=== PATIENT | female | born 1995 | race Caucasian/White ===

== ENCOUNTER → 2016-06-12 | Outpatient (CLI) | payer OTHER ==
[~2016-06-12] MED LIST: ATOXIMETIN-B1 CAP; LISINOPRIL10 MG PO; ZANTAC 150150 MG PO; Zithromax200 MG/5 M PO
== END | disposition home or self-care (01) ==
LOC: LAB 08:43
DX: R73.9 Hyperglycemia, unspecified (principal)

== ENCOUNTER → 2017-05-29 | Day surgery (SDC) | payer OTHER ==
[~2017-05-29] VITALS: Ht 177.8 cm; Wt 137.0 kg
[~2017-05-29] MED LIST changes: +HYDR25T PO; +NORCO 5-325 TA1 EACH PO
--- NOTE | ~2017-05-29 | PROC NOTE ---
[place], [place] PROCEDURE NOTE NAME: SHIRIN YOUNG UNIT #: [id number] ROOM: DOCTOR: CASH GEORGE MD BIRTHDATE: [birth year] DOS: 05/29/2017 PREOPERATIVE DIAGNOSIS: Bilateral axillary skin tags. POSTOPERATIVE DIAGNOSIS: Bilateral axillary skin tags. PROCEDURE: Excision of left axillary skin tags. SURGEON: Cash George MD [employer] MANAGER: TRAVON. ANESTHESIA: MAC with local (1% plain lidocaine). INDICATIONS: This is a 21-year-old lady with a history of bilateral extensive axillary skin tags, who is here for the above-mentioned procedure. The procedure and its complications were explained to the patient in detail preoperatively. Complications that were discussed included but were not limited to, bleeding, recurrence, prolonged pain and damage to underlying vital structures. She agreed to proceed. DESCRIPTION OF PROCEDURE: After identifying the patient, the patient was brought to the operating suite and laid in the supine position. It was decided to proceed with the left side first in order to spare her right arm since it is the dominant arm for her. The parts were then painted and draped in the usual sterile fashion. A time-out procedure was called. With the help of needle point cautery, multiple skin tags were excised and sent for histopathological diagnosis. Hemostasis was achieved and thereafter local anesthesia (1% plain lidocaine) was injected for the purposes of analgesia. A dressing was placed and the patient was brought back to the recovery room in stable fashion. There were no complications. Dr. Cash George, the attending surgeon, was present throughout the operating case. Cash George MD CM:PROCNOTE:PROCEDURE NOTE [id number] CASH GEORGE MD
[2017-05-29 07:11] VITALS: BP 112/57
[2017-05-29 08:01] VITALS: BP 96/54
[2017-05-29 08:16] VITALS: BP 106/52
[2017-05-29 08:31] VITALS: BP 116/60
[2017-05-29 08:44] VITALS: BP 112/52
[2017-05-29 08:55] VITALS: BP 116/56
== END | disposition home or self-care (01) ==
LOC: SDC 05-28 08:00
DX: L82.1 Other seborrheic keratosis (principal); L91.8 Other hypertrophic disorders of the skin; I10 Essential (primary) hypertension; Z88.8 Allergy status to other drugs, medicaments and biological substances; K21.9 Gastro-esophageal reflux disease without esophagitis; Z79.899 Other long term (current) drug therapy; E66.01 Morbid (severe) obesity due to excess calories; Z68.41 Body mass index [BMI] 40.0-44.9, adult

== ENCOUNTER 2017-10-30 16:46 | Emergency (ER) | payer OTHER ==
[~2017-10-30] VITALS: Ht 182.8 cm; Wt 168.3 kg
[2017-10-30] MEDS ORDERED: AUGMENTIN 875875 MG PO (17:09)
== END 2017-10-30 17:50 | disposition home or self-care (01) ==
LOC: ED 16:46
DX: S51.052A Open bite, left elbow, initial encounter (principal); S41.152A Open bite of left upper arm, initial encounter; Z79.899 Other long term (current) drug therapy; Z88.8 Allergy status to other drugs, medicaments and biological substances; W54.0XXA Bitten by dog, initial encounter; Y93.89 Activity, other specified; Y92.89 Other specified places as the place of occurrence of the external cause; Y99.9 Unspecified external cause status

== ENCOUNTER 2019-05-14 12:49 | Emergency (ER) | payer OTHER ==
[~2019-05-14] VITALS: Ht 172.7 cm; Wt 173.3 kg
[~2019-05-14 12:49] MED LIST changes: +AUGMENTIN 875875 MG PO
[2019-05-14 14:48] LABS: BASO # 0.1 10*3/uL (0.0-0.1); BASO % 0.5 % (0.0-1.0); EOS % 6.2 % (1.0-4.0); HEMATOCRIT 43.8 % (37.0-47.0); HEMOGLOBIN 14.5 g/dl (12.0-16.0); LYMPH # 3.4 10*3/uL (1.3-4.4); LYMPH % 21.8 % (27.0-41.0); MEAN CELL VOLUME 92.8 fl (81.0-99.0); MEAN CORPUSCULAR HGB 30.7 pg (27.0-31.0); MEAN CORPUSCULAR HGB CONC 33.1 g/dl (33.0-37.0); MEAN PLATELET VOLUME 10.3 fl (9.6-12.3); MONO # 1.1 10*3/uL (0.1-1.0); MONO % 7.1 % (3.0-9.0); NEUT # 9.8 10*3/uL (2.3-7.9); NEUT % 63.6 % (47.0-73.0); PLATELET COUNT AUTOMATED 279 10*3/uL (130-400); RED BLOOD COUNT 4.72 10*6/uL (4.10-5.10); WHITE BLOOD COUNT 15.4 10*3/uL (4.8-10.8)
[2019-05-14 14:52] LABS: BILIRUBIN NEGATIVE (NEGATIVE); BLOOD 3+ (NEGATIVE); CLARITY CLEAR (CLEAR); COLOR YELLOW (YELLOW); GLUCOSE NEGATIVE (NEGATIVE); KETONE NEGATIVE (NEGATIVE); LEUKO ESTERASE NEGATIVE (NEGATIVE); NITRITE NEGATIVE (NEGATIVE); UROBILINOGEN 0.2 E.U./dl (0.2-1.0)
[2019-05-14 15:02] LABS: BACTERIA 1+
[2019-05-14 15:04] LABS: ALBUMIN 3.5 gm/dl (3.1-4.5); ALKALINE PHOSPHATASE 79 U/L (45-117); BUN 6 mg/dl (7-24); CHLORIDE 105 mmol/L (98-107); CREATININE 0.72 mg/dL (0.55-1.02); LIPASE 102 U/L (73-393); POTASSIUM 3.9 mmol/L (3.5-5.1); SGOT/AST 26 IU/L (3-35); SGPT/ALT 47 U/L (12-78); SODIUM 138 mmol/L (136-145); TOTAL PROTEIN 7.7 gm/dL (6.4-8.2)
== END 2019-05-14 23:35 | disposition left against medical advice (07) ==
LOC: ED 12:49
PROVIDERS: Physician Assistant
DX: R10.13 Epigastric pain (principal); R11.0 Nausea; K21.9 Gastro-esophageal reflux disease without esophagitis; Z88.1 Allergy status to other antibiotic agents; Z79.2 Long term (current) use of antibiotics; Z79.899 Other long term (current) drug therapy

== ENCOUNTER → 2020-05-08 | Outpatient (CLI) | payer OTHER ==
[2020-05-08 12:08] LABS: BASO % 0.3 % (0.0-1.0); EOS # 0.2 10*3/uL (0.0-0.4); EOS % 1.5 % (1.0-4.0); HEMATOCRIT 43.9 % (37.0-47.0); LYMPH # 3.2 10*3/uL (1.3-4.4); LYMPH % 26.2 % (27.0-41.0); MEAN CELL VOLUME 93.2 fl (81.0-99.0); MEAN CORPUSCULAR HGB 29.9 pg (27.0-31.0); MEAN CORPUSCULAR HGB CONC 32.1 g/dl (33.0-37.0); MEAN PLATELET VOLUME 10.8 fl (9.6-12.3); MONO % 8.2 % (3.0-9.0); NEUT # 7.8 10*3/uL (2.3-7.9); NEUT % 63.3 % (47.0-73.0); PLATELET COUNT AUTOMATED 315 10*3/uL (130-400); RED BLOOD COUNT 4.71 10*6/uL (4.10-5.10); RED CELL DISTRI WIDTH 12.9 % (0-14.5); WHITE BLOOD COUNT 12.2 10*3/uL (4.8-10.8)
[2020-05-08 12:23] LABS: ALBUMIN 3.5 gm/dl (3.1-4.5); ALKALINE PHOSPHATASE 83 U/L (45-117); BUN 7 mg/dl (7-24); CHLORIDE 103 mmol/L (98-107); CHOLESTEROL 160 mg/dL (<200); CREATININE 0.82 mg/dL (0.55-1.02); FREE T4 1.06 ng/dl (0.76-1.46); HDL CHOLESTEROL 38 mg/dl (40-60); LDL CHOLESTEROL 97 mg/dL (9-159); POTASSIUM 3.5 mmol/L (3.5-5.1); SGOT/AST 29 IU/L (3-35); SGPT/ALT 57 U/L (12-78); SODIUM 136 mmol/L (136-145); TRIGLYCERIDES 126 mg/dl (<150); VLDL CHOLESTEROL 25 mg/dL (6-40)
[2020-05-08 12:55] LABS: VITAMIN D, 25-HYDROXY 8.2 ng/mL (30-100)
== END | disposition home or self-care (01) ==
LOC: LAB 10:19 → CARD 10:30
PROVIDERS: ATTEND Internal Medicine
DX: R06.02 Shortness of breath (principal); E55.9 Vitamin D deficiency, unspecified; I10 Essential (primary) hypertension; Z13.21 Encounter for screening for nutritional disorder; Z13.1 Encounter for screening for diabetes mellitus

== ENCOUNTER 2024-03-06 14:31 | Inpatient (IN) | payer OTHER ==
[2024-03-06] VITALS (8 sets, daily range): BP systolic 105–145; BP diastolic 55–78
[~2024-03-06] VITALS: Ht 177.8 cm; Wt 172.4 kg
[2024-03-06] MEDS ORDERED: Albuterol Sulf/Ipratropium 3 ML VIAL NEB ONE (15:00)
[2024-03-06] MEDS ORDERED: methylPREDNISolone sod succ 125 MG VIAL IV ONE (15:00)
[2024-03-06 15:13] LABS: HEMATOCRIT 42.2 % (37.0-47.0); MEAN CELL VOLUME 91.3 fl (81.0-99.0); MEAN CORPUSCULAR HGB 30.3 pg (27.0-31.0); MEAN CORPUSCULAR HGB CONC 33.2 g/dl (33.0-37.0); MEAN PLATELET VOLUME 10.2 fl (9.6-12.3); PLATELET COUNT AUTOMATED 238 10*3/uL (130-400); RED BLOOD COUNT 4.62 10*6/uL (4.10-5.10); RED CELL DISTRI WIDTH 13.7 % (0-14.5); WHITE BLOOD COUNT 12.7 10*3/uL (4.8-10.8)
[2024-03-06 15:15] LABS: MANUAL DIFF REFLEX YES
[2024-03-06 15:35] LABS: ALKALINE PHOSPHATASE 88 U/L (46-116); BUN 10 mg/dl (9-23); CHLORIDE 98 mmol/L (98-107); POTASSIUM 3.5 mmol/L (3.4-5.1); SGPT/ALT 35 U/L (5-49); TOTAL PROTEIN 7.8 gm/dL (6.0-8.0)
[2024-03-06 15:41] LABS: PLATELET SUFFICIENCY NORMAL (NORMAL); TOTAL CELLS COUNTED 100 #CELLS
[2024-03-06 15:42] LABS: POLYCHROMASIA SLIGHT
[2024-03-06] MEDS ORDERED: LIDOCAINE HCL/EPINEPHRINE 50 ML VIAL ONE (16:49)
[2024-03-06] MEDS ORDERED: HYDROmorphONE Hydrochloride 0.5 MG/0.5 ML SYRINGE IV ONE ×2 (17:10)
[2024-03-06] MEDS ORDERED: HYDROmorphONE Hydrochloride 0.5 MG/0.5 ML SYRINGE ONE (17:10)
[2024-03-06] MEDS ORDERED: PROTONIX TR40 M1 PO (19:53)
[2024-03-06] MEDS ORDERED: MONTELUKAST SOD10 MG PO (19:53)
[2024-03-06] MEDS ORDERED: HYDROCHLOROTH12.5 M2 PO (19:53)
[2024-03-06] MEDS ORDERED: TYLENOL325 M1 PO (19:54)
[2024-03-06] MEDS ORDERED: TRULICITY1.5 MG/0.5 SC (19:55)
[2024-03-06] MEDS ORDERED: LEVOFLOXACIN 750 MG TAB PO ONE (19:55)
[2024-03-06] MEDS ORDERED: ACETAMINOPHEN 325 MG TAB PO PRN (21:45)
[2024-03-06] MEDS ORDERED: Ketorolac Tromethamine 15 MG/ML VIAL IV PRN (21:55)
[2024-03-07] VITALS: BP 132/70
[2024-03-07] MEDS ORDERED: Pantoprazole Sodium 40 MG TAB PO SCH (06:00)
[2024-03-07 06:33] LABS: BASO % 0.2 % (0.0-1.0); HEMATOCRIT 41.4 % (37.0-47.0); LYMPH % 12.5 % (27.0-41.0); MEAN CELL VOLUME 90.4 fl (81.0-99.0); MEAN CORPUSCULAR HGB 31.2 pg (27.0-31.0); MEAN CORPUSCULAR HGB CONC 34.5 g/dl (33.0-37.0); MEAN PLATELET VOLUME 10.7 fl (9.6-12.3); MONO # 1.3 10*3/uL (0.1-1.0); MONO % 8.3 % (3.0-9.0); NEUT # 12.3 10*3/uL (2.3-7.9); NEUT % 78.2 % (47.0-73.0); PLATELET COUNT AUTOMATED 244 10*3/uL (130-400); RED BLOOD COUNT 4.58 10*6/uL (4.10-5.10); RED CELL DISTRI WIDTH 13.3 % (0-14.5); WHITE BLOOD COUNT 15.7 10*3/uL (4.8-10.8)
[2024-03-07 07:02] LABS: BUN 14 mg/dl (9-23); CHLORIDE 100 mmol/L (98-107)
[2024-03-07 08:00] VITALS: BP 106/55
[2024-03-07] MEDS ORDERED: LISINOPRIL 10 MG TAB PO SCH (10:00)
[2024-03-07] MEDS ORDERED: HYDROCHLOROTHIAZIDE 12.5 MG CAP PO SCH (10:00)
[2024-03-07] MEDS ORDERED: Montelukast Sodium 10 MG TAB PO SCH (10:00)
[2024-03-07 12:00] VITALS: BP 134/70
[2024-03-07] MEDS ORDERED: LEVOFLOXACIN 750 MG TAB PO SCH (14:15)
[2024-03-07] MEDS ORDERED: Albuterol Sulfate 2.5 MG/3 ML VIAL NEB SCH (14:20)
[2024-03-07] MEDS ORDERED: Acetaminophen/Oxycodone 5 MG/325 MG TABLET PO PRN (14:30)
[2024-03-07 16:00] VITALS: BP 113/54
[2024-03-07 20:00] VITALS: BP 115/49
[2024-03-08] VITALS: BP 117/67
[2024-03-08] MEDS ORDERED: GUAIFENESIN/DEXTROMETHORPHAN 10 ML UDC PO PRN (00:15)
[2024-03-08] MEDS ORDERED: IOHEXOL 300 MG/ML 100 ML VIAL IV ONE (07:30)
[2024-03-08 08:00] VITALS: BP 117/81
[2024-03-08 12:00] VITALS: BP 123/54
[2024-03-08 16:00] VITALS: BP 104/46
== END 2024-03-08 22:06 | disposition short-term general hospital (02) | DRG 143 ==
LOC: ED 14:31 → EDHOLD 18:12 → 4E 18:12
PROVIDERS: Internal Medicine; Nurse Practitioner Family; ADMIT Internal Medicine; ATTEND Internal Medicine
PROC: 0W9B30Z Drainage of Left Pleural Cavity with Drainage Device, Percutaneous Approach (ICD-10-PCS; principal; 2024-03-06)
DX: J93.83 Other pneumothorax (principal); J96.01 Acute respiratory failure with hypoxia; Z68.43 Body mass index [BMI] 50.0-59.9, adult; J18.9 Pneumonia, unspecified organism; E11.9 Type 2 diabetes mellitus without complications; J98.11 Atelectasis; E66.01 Morbid (severe) obesity due to excess calories; F90.9 Attention-deficit hyperactivity disorder, unspecified type; I10 Essential (primary) hypertension; K21.00 Gastro-esophageal reflux disease with esophagitis, without bleeding

== ENCOUNTER → 2024-04-27 | Outpatient (CLI) | payer OTHER ==
[~2024-04-27] MED LIST changes: +HYDROCHLOROTH12.5 M2 PO; +MONTELUKAST SOD10 MG PO; +PROTONIX TR40 M1 PO; +TRULICITY1.5 MG/0.5 SC; +TYLENOL325 M1 PO
== END | disposition home or self-care (01) ==
LOC: US 14:30
PROVIDERS: ATTEND Internal Medicine
DX: M79.662 Pain in left lower leg (principal); R22.42 Localized swelling, mass and lump, left lower limb